=== PATIENT | female | born 1990 ===

== ENCOUNTER 2019-05-07 18:37 | Emergency (ER) | payer OTHER ==
[2019-05-07 20:22] LABS: HEMATOCRIT 39.3 % (37.0-47.0); HEMOGLOBIN 13.5 g/dl (12.5-16.0); MEAN CELL VOLUME 87 fl (80.0-100.0); MEAN CORPUSCULAR HEMOGLOBIN 30 pg (27.0-31.0); MEAN CORPUSCULAR HGB CONC 34 g/dl (33.0-37.0); MEAN PLATELET VOLUME 9.3 fl (7.4-10.4); PLATELET COUNT 242 K/mm3 (130-400); RED BLOOD COUNT 4.53 M/mm3 (4.10-5.30); REDCELL DISTRIBUTION WIDTH-CV 13.2 % (11.5-14.5)
[2019-05-07 20:32] LABS: ALBUMIN 3.9 gm/dL (3.5-5.0); BILIRUBIN,TOTAL 0.2 mg/dL (0.0-1.0); CALCIUM 9.2 mg/dL (8.4-10.2); CREATININE, serum 1.09 (0.52-1.25); POTASSIUM 3.5 mmol/L (3.4-5.0); TOTAL PROTEIN 7.9 gm/dL (6.4-8.2)
[2019-05-07 20:53] LABS: BAND 4 % (0-10); EOSINOPHIL 6 % (0-4); LYMPHOCYTE 24 % (20.0-51.0); NEUTROPHILS 59 % (42.0-75.2); PLATELET ESTIMATE NORMAL (NORMAL)
[2019-05-07] MEDS ORDERED: MALARONE 250 MG1 TAB PO (21:35)
[2019-05-07] MEDS ORDERED: PROMETHAZINE12.5 M5 PO (22:37)
[2019-05-07 22:52] VITALS: BP 103/65; PULSE 96; TEMP 98.7
== END 2019-05-07 22:52 | disposition home or self-care (01) ==
LOC: COL.ER 18:37
PROVIDERS: Emergency Medicine
DX: R50.9 Fever, unspecified (principal)
CPT/HCPCS: J1885; J7030